=== PATIENT | female | born 2000 | race Caucasian/White ===

== ENCOUNTER 2022-09-24 09:13 | Outpatient (CLI) | payer BC, SELFPAY ==
--- NOTE | 2022-09-24 09:15 | CRLHL7_ITS ---
For Patients: As a result of the Century Cures Act, medical imaging exams and procedure reports are released immediately into your electronic medical record. You may view this report before your referring provider. If you have questions, please contact your health care provider. RIGHT BREAST ULTRASOUND CLINICAL HISTORY: RIGHT breast lump. COMPARISON: LEFT breast ultrasound 07/25/2018. TECHNIQUE: Real-time ultrasound imaging of RIGHT breast with imaging documentation. FINDINGS: Targeted sonogram RIGHT breast performed in the area of concern at 12 o`clock 8 cm from the nipple. In this location there is a solid circumscribed heterogeneously hypoechoic nodule measuring 2.2 x 1.2 x 2.2 cm. No abnormal vascularity. IMPRESSION: Benign fibroadenoma RIGHT breast 12 o`clock 8 cm from the nipple measuring 2.2 cm. RECOMMENDATIONS: Clinical follow-up. Results and recommendations were discussed with the patient at the time of the exam. BI-RADS Category 2: Benign A lay language report of this examination will be provided to the patient. Dictated by Ilir Samson MD @ 09/24/2022 10:08:46 AM /Dictated by: Ilir Samson MD @ 09/24/2022 10:08:00 AM (Electronically Signed)
== END 2022-09-24 09:14 | disposition home or self-care (01) ==
LOC: US 09:14
PROVIDERS: Visit Provider Physician Assistant
DX: N63.10 Unspecified lump in the right breast, unspecified quadrant (principal)
CPT/HCPCS: 76642; 87086; 87186

== ENCOUNTER 2023-09-13 12:14 | Outpatient (CLI) | payer BC, SELFPAY | END 2023-09-13 12:15 | disposition home or self-care (01) | PROVIDERS: Visit Provider Physician Assistant | DX: K59.00 Constipation, unspecified (principal); Z13.29 Encounter for screening for other suspected endocrine disorder | CPT/HCPCS: 84443 ==